=== PATIENT | male | born 1950 | race Caucasian/White ===

== ENCOUNTER 2019-10-02 09:43 | Outpatient (CLI) | payer MEDICARE, OTHER | END 2019-10-02 09:44 | disposition home or self-care (01) | LOC: LAB.S 09:43 | PROVIDERS: ATTEND Family Medicine Adult Medicine | DX: K21.9 Gastro-esophageal reflux disease without esophagitis (principal); Z20.828 Contact with and (suspected) exposure to other viral communicable diseases | CPT/HCPCS: 81599 ==